=== PATIENT | female | born 1950 | race Caucasian/White ===

== ENCOUNTER 2018-08-26 08:24 | Day surgery (SDC) | payer OTHER ==
[2018-08-26] MEDS: SOD CHLORIDE 0.9% 1,000 ML IV (06:00)
[~2018-08-26 08:24] MED LIST: CEFAZOLIN 2 GM/50 ML (PMX) 50 ML IVPB
[2018-08-26 09:46] LABS: ADD MAN DIFF? NO
[2018-08-26 09:52] LABS: BASOPHILS % 0.6 % (0.0-2.0); EOSINOPHILS # 0.2 10^3/ul (0.0-0.5); EOSINOPHILS % 2.2 % (0.0-7.0); HEMATOCRIT 41.4 % (37.0-47.0); HEMOGLOBIN 14.3 g/dl (12.0-16.0); LYMPHOCYTES # 1.8 10^3/ul (0.8-2.9); LYMPHOCYTES % 24.2 % (15.0-51.0); MEAN CORPUSCULAR HEMOGLOBIN 33.2 pg (29.0-33.0); MEAN CORPUSCULAR HGB CONC 34.5 g/dl (32.0-37.0); MEAN CORPUSCULAR VOLUME 96.1 fl (82.0-101.0); MEAN PLATELET VOLUME 9.7 fl (7.4-10.4); MONOCYTE # 0.4 10^3/ul (0.3-0.9); MONOCYTES % 5.4 % (0.0-11.0); NEUTROPHIL # 4.9 10^3/ul (1.6-7.5); NEUTROPHILS % 67.3 % (39.0-77.0); PLATELET COUNT 338 10^3/UL (140-415); RED BLOOD COUNT 4.31 10^6/ul (4.20-5.40)
[2018-08-26 09:52] LABS: WHITE BLOOD COUNT 7.3 10^3/ul (4.8-10.8)
[2018-08-26 10:17] LABS: ALANINE AMINOTRANSFERASE 48 IU/L (13-69); ALBUMIN 3.8 g/dl (3.3-4.9); ALBUMIN/GLOBULIN RATIO 1.11; ALKALINE PHOSPHATASE 87 IU/L (42-121); ANION GAP 12 (8-16); ASPARTATE AMINO TRANSFERASE 36 IU/L (15-46); BILIRUBIN,INDIRECT 0.8 mg/dl (0-1.1); BILIRUBIN,TOTAL 0.8 mg/dl (0.2-1.3); BLOOD UREA NITROGEN 8 mg/dl (7-20); CALCIUM 9.5 mg/dl (8.4-10.2); CARBON DIOXIDE 25 mmol/L (21-31); CHLORIDE 109 mmol/L (97-110); CREATININE 0.69 mg/dl (0.44-1.00); GLUCOSE 98 mg/dl (70-220); POTASSIUM 3.4 mmol/L (3.5-5.1); SODIUM 143 mmol/L (135-144); TOTAL PROTEIN 7.2 g/dl (6.1-8.1)
[2018-08-26 10:51] LABS: INR 1.06; PROTIME 13.9 Sec (11.9-14.9); PT RATIO 1.1
[2018-08-26 10:52] LABS: PARTIAL THROMBOPLASTIN TIME 30.7 Sec (23.0-35.0)
[2018-08-26] MEDS ORDERED: ROCURONIUM 50 MG INJ (11:55)
[2018-08-26] MEDS ORDERED: LIDOCAINE 2% (SDV) 5 ML INJ (11:55)
[2018-08-26] MEDS ORDERED: ETOMIDATE 20 MG INJ (11:55)
[2018-08-26] MEDS ORDERED: MIDAZOLAM 1 MG/ML 2 ML INJ (11:55)
[2018-08-26] MEDS ORDERED: LABETALOL HCL 20MG INJ (12:05)
[2018-08-26] MEDS ORDERED: CEFAZOLIN 1 GM INJ (12:07)
[2018-08-26] MEDS ORDERED: PHENYLephrine (100 MCG/ML) 5ML SYG (12:19)
[2018-08-26] MEDS ORDERED: DEXAMETHASONE 4 MG/ML 1 ML INJ (12:29)
[2018-08-26] MEDS ORDERED: ONDANSETRON 4 MG INJ ×2 (12:29→13:39)
[2018-08-26] MEDS ORDERED: ROPIVACAINE 0.2% 20 ML VIAL ×2 (12:37→12:49)
[2018-08-26] MEDS ORDERED: SUGAMMADEX SODIUM 200 MG/2 ML VIAL IV (12:49)
[2018-08-26] MEDS: HYDROCODONE/APAP (5/325) TAB PO (13:26)
[2018-08-26] MEDS: ONDANSETRON 4 MG INJ IV ×2 (13:43→14:55)
== END 2018-08-26 15:30 | disposition home or self-care (01) ==
LOC: SDS 08:24
DX: K80.10 Calculus of gallbladder with chronic cholecystitis without obstruction (principal)
CPT/HCPCS: 47562; 71045; 80053; 85025; 85610; 85730; 88304